=== PATIENT | male | born 1995 | race Caucasian/White ===

== ENCOUNTER 2016-11-25 19:32 | Emergency (ER) | payer OTHER ==
[2016-11-25 19:59] VITALS: BP 158/76; PULSE 78; TEMP 98.6; BMI 36.9
[2016-11-25] MEDS: diphenhydrAMINE HCL 25 MG CAPSULE (FP) PO ONE ×2 (20:47→21:01)
[2016-11-25] MEDS ORDERED: IBUPROFEN 400 MG TABLET (FP) PO ONE ×2 (20:57→21:02)
--- NOTE | 2016-11-25 21:03 | PDOC ---
History of Present Illness - General Chief Complaint: Laceration Stated Complaint: LACERATION Time Seen by Provider: 11/25/16 20:39 History Source: Patient Exam Limitations: No Limitations - History of Present Illness Initial Comments: 11/25/16 20:59 CC laceration to right elbrow x 34 hrs ago cut on metal sign Timing/Duration: reports: yesterday Severity: Yes: mild Location: reports: face Past History - Past Medical History Allergies/Adverse Reactions: Allergies Allergy/AdvReac Type Severity Reaction Status Date / Time No Known Allergies Allergy Verified 11/25/16 19:55 Home Medications: Ambulatory Orders NK [No Known Home Medication] 11/25/16 Suicide Attempt (Hx): No - Immunization History Immunization Up to Date: Yes - Psycho/Social/Smoking Cessation Hx Anxiety: No Suicidal Ideation: No Smoking Status: No Smoking History: Never smoked Have you smoked in the past 12 months: No Number of Cigarettes Smoked Daily: 0 Hx Alcohol Use: Yes Drug/Substance Use Hx: No Substance Use Type: None Review of Systems - Review of Systems Constitutional: Yes: Symptoms Reported HEENTM: Yes: Other (right ey brow lacerartion) *Physical Exam - Vital Signs Last Vital Signs Temp Pulse Resp BP Pulse Ox 98.6 F 78 16 158/76 99 11/25/16 19:56 11/25/16 19:56 11/25/16 19:56 11/25/16 19:56 11/25/16 19:56 - Physical Exam General Appearance: Yes: Appropriately Dressed. No: Apparent Distress HEENT: positive: Other (3 cm laceration right eyebrow) Medical Decision Making - Medical Decision Making hot UTD; will start on short course abx; WC 3-4 days *DC/Admit/Observation/Transfer Diagnosis at time of Disposition: Laceration of right eyebrow Qualifiers: Encounter type: initial encounter Qualified Code(s): S01.111A - Laceration without foreign body of right eyelid and periocular area, initial encounter - Discharge Dispostion Disposition: HOME Condition at time of disposition: Stable Admit: No - Referrals Referrals: Jada Márquez MD [Primary Care Provider] - - Patient Instructions Additional Instructions: wound check in ED 3 days; keep dry until then - Post Discharge Activity Work/School Note: Back to Work
== END 2016-11-25 21:07 | disposition home or self-care (01) ==
LOC: JERFT 19:32
DX: S01.111A Laceration without foreign body of right eyelid and periocular area, initial encounter (principal); W26.8XXA Contact with other sharp object(s), not elsewhere classified, initial encounter; Y93.89 Activity, other specified; Y92.89 Other specified places as the place of occurrence of the external cause; Y99.8 Other external cause status
CPT/HCPCS: 99281-25

== ENCOUNTER 2017-02-24 15:10 | Emergency (ER) | payer OTHER ==
[2017-02-24 15:15] VITALS: BP 125/58; PULSE 100; TEMP 98.6; BMI 36.0
[2017-02-24] MEDS ORDERED: TETRACAINE 0.5% OPHTH SOLN 2 ML BOTTLE OS ONE (16:15)
--- NOTE | 2017-02-24 16:15 | PDOC ---
History of Present Illness - General Chief Complaint: Eye Problem Stated Complaint: EYE PAIN Time Seen by Provider: 02/24/17 15:43 History Source: Patient Exam Limitations: No Limitations - History of Present Illness Initial Comments: 02/24/17 17:15 My chief complaint: left eye pain with tearing and sensitivity to light History of present illness: Patient is a 21-year-old male here today complaining of left eye pain with tearing and photophobia since the middle of the night. Patient denies getting something in his eye earlier in the day. Patient denies any change in vision. Patient does not wear glasses or contacts. Timing/Duration: constant Severity: moderate (left eye) Associated Symptoms: reports: other (tearing, pain left eye ) Past History - Past Medical History Allergies/Adverse Reactions: Allergies Allergy/AdvReac Type Severity Reaction Status Date / Time No Known Allergies Allergy Verified 02/24/17 15:15 Home Medications: Ambulatory Orders Erythromycin 0.5% Eye Ointment [Erythromycin 0.5% Eye Ointment -] 1 applic OS QID #1 tube 02/24/17 COPD: No - Immunization History Immunization Up to Date: Yes - Suicide/Smoking/Psychosocial Hx Smoking Status: No Smoking History: Never smoked Have you smoked in the past 12 months: No Number of Cigarettes Smoked Daily: 0 Hx Alcohol Use: Yes (SOCIAL) Drug/Substance Use Hx: No Substance Use Type: None Review of Systems - Review of Systems Able to Perform ROS?: Yes Constitutional: No: Symptoms Reported HEENTM: Yes: Eye Pain (left eye ), Tearing (left eye), Other (photophobia left eye ). No: Blurred Vision, Double Vision Respiratory: No: Symptoms reported Cardiac (ROS): No: Symptoms Reported ABD/GI: No: Symptoms Reported : No: Symptoms Reported Musculoskeletal: No: Symptoms Reported Integumentary: No: Symptoms Reported Neurological: No: Symptoms reported *Physical Exam - Vital Signs Last Vital Signs Temp Pulse Resp BP Pulse Ox 98.6 F 100 H 20 125/58 98 02/24/17 15:13 02/24/17 15:13 02/24/17 15:13 02/24/17 15:13 02/24/17 15:13 - Physical Exam General Appearance: Yes: Appropriately Dressed HEENT: positive: EOMI, ABI, Photophobia (left eye with tearing), Other ( corneal abrasion left eye at 11 o'clock, no foreign body noted). negative: Orbits Integumentary: positive: Normal Color Neurologic: positive: Alert, Normal Response Procedures - Eye Procedure Antibiotic Oinment/Drps Admin: left eye (erythromycin 0.5% opth 1/2 inch left eye) Progress: 02/24/17 16:23 No foreign body noted, corneal abrasion noted at 11:00 - Additional Procedures Progress: 02/24/17 17:27 No foreign body noted left eye Corneal abrasion noted at 11:00 left Medical Decision Making - Medical Decision Making 02/24/17 17:25 Patient is a 21-year-old male here today complaining of left eye pain with tearing and photophobia since the middle of the night. Patient denies getting something in his eye earlier in the day. Patient denies any change in vision. Patient does not wear glasses or contacts. Left corneal abrasion at 11:00 no foreign body noted PLAN: Tetracine 0.5% solution 2 drops left eye Fluorscene stain left eye corneal Abrasion noted at 11:00 left eye optho consult if pain continues *DC/Admit/Observation/Transfer Diagnosis at time of Disposition: Corneal abrasion, left Qualifiers: Encounter type: initial encounter Qualified Code(s): S05.02XA - Injury of conjunctiva and corneal abrasion without foreign body, left eye, initial encounter - Discharge Dispostion Disposition: HOME Condition at time of disposition: Stable - Prescriptions Prescriptions: Erythromycin 0.5% Eye Ointment [Erythromycin 0.5% Eye Ointment -] 1 applic OS QID #1 tube - Referrals Referrals: Jada Márquez MD [Primary Care Provider] - Sammy Flores MD [Staff Physician] - - Patient Instructions Additional Instructions: Do Not rub your left eye Follow-up with cable driller if pain continues tomorrow Patient voiced understanding of discharge instructions and all questions were answered - Post Discharge Activity
[2017-02-24] MEDS ORDERED: FLUORESCEIN NA 1 EA STRIP OS ONE (16:16)
[2017-02-24] MEDS ORDERED: ERYTHROMYCIN 0.5% OPHTHALMIC OINTMENT 3.5 GM TUBE OS ONE (16:17)
[2017-02-24] MEDS ORDERED: FLUORESCEIN NA 1 EA STRIP ONE (16:24)
[2017-02-24] MEDS ORDERED: ERYTHROMYCIN 0.5% OPHTHALMIC OINTMENT 3.5 GM TUBE ONE (16:24)
[2017-02-24] MEDS ORDERED: TETRACAINE 0.5% OPHTH SOLN 2 ML BOTTLE ONE (16:24)
== END 2017-02-24 16:28 | disposition home or self-care (01) ==
LOC: JERFT 15:10
DX: S05.02XA Injury of conjunctiva and corneal abrasion without foreign body, left eye, initial encounter (principal); X58.XXXA Exposure to other specified factors, initial encounter; Y93.89 Activity, other specified; Y92.89 Other specified places as the place of occurrence of the external cause; Y99.8 Other external cause status
CPT/HCPCS: 99281-25

== ENCOUNTER 2020-04-10 11:16 | Emergency (ER) | payer OTHER ==
[2020-04-10 11:39] VITALS: BP 123/73; PULSE 91; TEMP 97.9; BMI 39.1
[2020-04-10] MEDS ORDERED: IBUPROFEN 600 MG TABLET (FP) PO ONE ×2 (11:55→12:03)
== END 2020-04-10 12:59 | disposition home or self-care (01) ==
LOC: JERFT 11:16 → JER 11:16 → JERFT 12:59
DX: M25.572 Pain in left ankle and joints of left foot (principal)
CPT/HCPCS: 73610-TC-LT-FY; 73630-TC-LT; 99284-25